=== PATIENT | female | born 1995 | race African-American/Black ===

== ENCOUNTER 2023-04-02 08:56 | Inpatient (IN) ==
[2023-04-02] MEDS ORDERED: BUPIVACAINE 0.25% PF 30 ML VIAL ONE (09:24)
[2023-04-02] MEDS ORDERED: fentaNYL citrate PF 100 MCG/2 ML VIAL ONE (09:24)
[2023-04-02] MEDS ORDERED: ePHEDrine sulfate 50 MG/ML AMP ONE (09:24)
[2023-04-02] MEDS ORDERED: SODIUM CHLORIDE 0.9% PF INJ 10 ML VIAL ONE (09:24)
[2023-04-02] MEDS ORDERED: LIDOCAINE 2%/EPINEPHRINE 1:200,000 20 ML PF ONE (09:25)
[2023-04-02] MEDS ORDERED: fentaNYL 2MCG/ML ROPIVACAINE 1.25MG/ML 100 ML BAG EPI ONE (09:25)
[2023-04-02] MEDS ORDERED: OXYTOCIN 30 UNITS/500ML NSS IV ONE (09:33)
[2023-04-02] MEDS ORDERED: LIDOCAINE 1% LOCAL 20 ML VIAL INFIL PRN (09:36)
[2023-04-02] MEDS ORDERED: OXYTOCIN 30 UNITS/500 ML BAG IV PRN ×3 (09:36→14:47)
--- NOTE | 2023-04-02 09:40 | Anesthesiology Consultation ---
Date of Service April 02, 2023 Assessment & Plan Chart Review Chart Review: Acceptable Risk for Surgery, Patient NOT seen in Pre Admission Testing and Acceptable Risk for Labor Epidural Consults Requested none ASA ASA2 Proposed Anesthesia Anesthesia Type: Labor Epidural and CSE History Height/Weight Height: 5 ft 5 in Weight: 93.416 kg Allergies Allergy/AdvReac Type Severity Reaction Status Date / Time No Known Allergies Allergy Verified 03/31/23 09:54 Medications Home Medications Medication Instructions Recorded Confirmed Last Taken prenat.vits,samuel,dyq-[id number]-owzdq 1 tab PO DAILY #60 tabs 12/30/22 04/02/23 04/01/23 Past Medical History Medical History No pertinent past medical history Exercise / Class Metabolic Activity II 4-5 Yardwork/Stairs/Walk up hill Past Family History Family History Father Hypertension Heart disease Past Surgical History Surgical History History of appendectomy Past Anesthesia History No Hx of Anesthesia Complications and No Family Hx of Anesthesia Complications History of PONV No Hx of PONV and No Hx of Motion Sickness Social History Smoking Status: Never smoker Do You Dip or Chew Tobacco: No Hx Alcohol Use: No Hx Substance Use: No Physical Exam Vital Signs Last Vital Signs Pulse 110 H 04/02/23 09:07 Resp 18 04/02/23 09:14 BP 121/66 04/02/23 09:07
--- NOTE | 2023-04-02 09:40 | History & Physical Report ---
Date of Service April 02, 2023 Assessment & Plan (1) Normal labor: Plan admit, iv, labs. anesth consult for epidural. fhts categ 1. anticipate soon. History of Present Illness Chief Complaint: labor Primary Care Provider: NO PCP 28yo at 39+wks ega presents with cc of labor. No rom. No vb. Feels rectal pressure. Cx per nurse ?complete. PNC unremarkable. PNL rh pos, ri, gbs neg OBH: g1 GYNH: nl paps no stds Allergies Allergy/AdvReac Type Severity Reaction Status Date / Time No Known Allergies Allergy Verified 03/31/23 09:54 Home Medications Medication Instructions Recorded Confirmed Type prenat.vits,samuel,[id number] 1 tab PO DAILY #60 tabs 12/30/22 04/02/23 Rx Patient History Medical History No pertinent past medical history Surgical History History of appendectomy Family History Father Hypertension Heart disease Social History (Updated 04/02/23 @ 09:14 by Maribel Benson, RN) Smoking Status: Never smoker Do You Dip or Chew Tobacco: No; Hx Alcohol Use: No Hx Substance Use: No Preferred Language: Slovenian Communication Ability: Effective Chief Media Officer Required: No Beliefs That Will Affect Care: None marital status: marital status details: Kevin (31) [phone] Current Living Situation: Spouse Current Living Situation Comment: lives with spouse, and his parents. current occupational status: unemployed current occupation: Homemaker Feels Safe at Home: Yes Diet: regular Assistive Devices: None Review of Systems as per Subjective / HPI Physical Exam Constitutional: WD/WN, vitals as above Gastrointestinal (Abdomen): soft gravid nt Musculoskeletal: no edema Neurologic: grossly normal Psychiatric: A+Ox3, euthymic affect Genitourinary: Manual OB Exam: + cervical dilation 9 cm, + cervical effacement 100%, + station -2 and + amniotic fluid (arom) clear Results & Data Vital Signs (Past 12 Hours) Vital Signs Pulse Resp BP 04/02/23 09:14 18 04/02/23 09:07 110 H 121/66 Coding Level of Care Code None Diagnoses Normal labor O80; Z37.9
[2023-04-02] MEDS: LACTATED RINGER'S 1,000 ML IV PRN ×2 (09:45→10:31)
[2023-04-02 10:02] LABS: Hematocrit (blood only) 35.2 % (37.0-47.0); Hemoglobin 11.8 g/dl (12.0-16.0); Mean Corpuscular Hemoglobin 30.8 pg (25.0-34.0); Mean Corpuscular Hgb Conc 33.5 g/dL (32.0-36.0); Mean Corpuscular Volume 91.9 fL (80.0-100.0); Mean Platelet Volume 10.9 fL (9.4-12.4); Platelet Count 194 K/uL (130-400); RDW Coefficient of Variation 14.5 % (11.5-14.5); RDW Standard Deviation 48.3 fL (36.4-46.3); Red Blood Count 3.83 M/uL (4.20-5.40); White Blood Count 8.64 K/ul (4.8-10.8)
[2023-04-02] MEDS ORDERED: NALOXONE HCL 1 MG in SODIUM CHLORIDE 0.9% 1000ML 1,000 ML IV PRN (10:16)
[2023-04-02] MEDS ORDERED: SODIUM CHLORIDE 0.9% PF INJ 10 ML VIAL EPI STA (10:16)
[2023-04-02] MEDS ORDERED: LIDOCAINE 2% MPF LOCAL 5 ML VIAL EPI PRN (10:16)
[2023-04-02] MEDS ORDERED: SODIUM CHLORIDE 0.9% PF INJ 10 ML VIAL EPI PRN (10:16)
[2023-04-02] MEDS ORDERED: LIDOCAINE 2%/EPINEPHRINE 1:200,000 20 ML PF EPI STA (10:16)
[2023-04-02] MEDS ORDERED: fentaNYL citrate PF 100 MCG/2 ML VIAL EPI STA (10:16)
[2023-04-02] MEDS ORDERED: ePHEDrine sulfate 50 MG/ML AMP IV PRN (10:16)
[2023-04-02] MEDS ORDERED: NALOXONE HCL 0.4 MG/1 ML VIAL/CARP IV PRN (10:16)
[2023-04-02] MEDS ORDERED: PROMETHAZINE HCL 25 MG in SODIUM CHLORIDE 0.9% 50 ML IV PRN (10:16)
[2023-04-02] MEDS ORDERED: ONDANSETRON INJ 2 MG/ML 2 ML VIAL IV PRN (10:16)
[2023-04-02] MEDS ORDERED: fentaNYL 2MCG/ML ROPIVACAINE 1.25MG/ML 100 ML BAG EPI PRN (10:16)
[2023-04-02] MEDS ORDERED: NALBUPHINE HCL INJ 10 MG/ML AMP IV PRN (10:16)
[2023-04-02] MEDS ORDERED: fentaNYL citrate PF 100 MCG/2 ML VIAL EPI PRN (10:16)
[2023-04-02] MEDS ORDERED: BUPIVACAINE 0.25% PF 30 ML VIAL EPI STA (10:16)
[2023-04-02] MEDS ORDERED: BUPIVACAINE 0.25% PF 30 ML VIAL EPI PRN (10:16)
[2023-04-02] MEDS ORDERED: ROPIVACAINE 0.5% PF 5 MG/ML 20 ML VIAL EPI PRN (10:16)
[2023-04-02] MEDS ORDERED: diphenhydrAMINE 50 MG/ML VIAL IV PRN (10:16)
--- NOTE | 2023-04-02 12:53 | Labor Progress Brief Note ---
Date of Service April 02, 2023 Subjective pt comfortable, s/p nap. bladder just drained and ready to push. Assessment & Plan (1) Normal labor: Plan ready to push, may benefit from pitocin due to irregular ctx. efw 7-8#. fhts categ 1. Admission and Anticipated Discharge Date Admission Date: April 02, 2023 Physical Exam Constitutional: WD/WN, vitals as above Genitourinary: Manual OB Exam: + cervical dilation 10 cm and + cervical effacement 100% OB Exam Monitor Tracing: + external FHT monitor used, + external uterine monitor used (q2-5), + category I and + normal FHT variability Results & Data Vital Signs (Past 12 Hours) Vital Signs Temp Pulse Resp BP Pulse Ox 04/02/23 09:14 18 04/02/23 12:50 105 H 100 04/02/23 12:48 103 H 116/72 04/02/23 12:45 94 04/02/23 12:45 97 H 04/02/23 12:45 102 H 90 04/02/23 12:42 97.7 F 111 H 20 119/76 04/02/23 12:40 106 H 100 04/02/23 12:37 109 H 111/68 04/02/23 12:35 108 H 100 04/02/23 12:33 100 H 20 111/60 04/02/23 12:30 96 H 100 04/02/23 12:27 96 H 105/58 L 04/02/23 12:25 108 H 100 04/02/23 12:22 94 H 100/57 L 04/02/23 12:20 93 H 100 04/02/23 12:17 94 H 104/55 L 04/02/23 12:15 104 H 98 04/02/23 12:14 103 H 89 L 04/02/23 12:12 95 H 103/57 L 04/02/23 12:10 99 H 100 04/02/23 12:07 98 H 102/57 L 04/02/23 12:05 98 H 100 04/02/23 12:03 94 H 100/59 L 04/02/23 12:00 100 H 100 04/02/23 11:58 100 H 100/53 L 04/02/23 11:55 95 H 100 04/02/23 11:54 95 H 103/55 L 04/02/23 11:50 101 H 100 04/02/23 11:48 104 H 103/56 L 04/02/23 11:45 104 H 100 04/02/23 11:42 100 H 101/59 L 04/02/23 11:40 103 H 100 04/02/23 11:37 100 H 104/59 L 04/02/23 11:35 106 H 100 04/02/23 11:34 105 H 101/58 L 04/02/23 11:30 107 H 99 04/02/23 11:28 101 H 18 101/53 L 04/02/23 11:25 105 H 100 04/02/23 11:23 101 H 18 102/56 L 04/02/23 11:20 111 H 100 04/02/23 11:17 102 H 18 107/55 L 04/02/23 11:15 103 H 100 04/02/23 11:14 104 H 105/56 L 04/02/23 11:10 112 H 98 04/02/23 11:08 108 H 104/55 L 04/02/23 11:05 107 H 100 04/02/23 11:02 107 H 103/55 L 04/02/23 11:00 106 H 100 04/02/23 10:58 118 H 102/59 L 04/02/23 10:55 104 H 99 04/02/23 10:54 123 H 117/65 04/02/23 10:50 133 H 100 04/02/23 10:48 20 04/02/23 10:48 98.1 F 111 H 20 113/57 L 04/02/23 10:45 120 H 100 04/02/23 10:42 118 H 04/02/23 10:42 132 H 118/56 L 93 04/02/23 10:40 118 H 99 04/02/23 10:39 134 H 109/51 L 04/02/23 10:35 121 H 98 04/02/23 10:33 121 H 20 102/50 L 04/02/23 10:30 112 H 97/55 L 100 04/02/23 10:28 125 H 20 97/49 L 04/02/23 10:25 117 H 100 04/02/23 10:24 131 H 105/49 L 04/02/23 10:20 112 H 100 04/02/23 10:18 126 H 18 80/41 L 04/02/23 10:17 117 H 18 95/44 L 04/02/23 10:15 114 H 18 100 04/02/23 10:14 133 H 18 107/54 L 04/02/23 10:12 121 H 18 110/61 04/02/23 10:10 100 04/02/23 10:10 124 H 04/02/23 10:10 121 H 18 123/72 04/02/23 10:05 124 H 89 L 04/02/23 10:00 117 H 100 04/02/23 09:55 113 H 100 04/02/23 09:50 115 H 100 04/02/23 09:45 121 H 100 04/02/23 09:40 132 H 97 04/02/23 09:07 97.9 F 110 H 121/66 Coding Level of Care Code None Diagnoses Normal labor O80; Z37.9
--- NOTE | 2023-04-02 13:57 | Delivery Summary ---
Vaginal Delivery Summary Date of Service April 02, 2023 Vaginal Delivery Summary and 2nd Degree LAC The patient dilated to complete and pushed to deliver a viable male infant Apgars 8 and 9 via over 2nd degree perineal laceration. Mild shoulder dystocia encountered relieved by Kailey maneuvers and effective maternal expulsive efforts. Mouth and nose bulb suctioned at perineum. Shoulders and body delivered with ease. Infant was vigorous and crying at . Cord clamped at 30 seconds of life and to maternal abdomen where the cord was then doubly clamped and cut. Placenta delivered spontaneously and intact, three- vessel cord. Hemostasis achieved with dilute pitocin and uterine massage and drainage of the bladder for approximately 50 cc under sterile conditions. Cervix and sulci intact. Laceration repaired with 3-0 vicryl in usual fashion. EBL 300 cc. Mother and baby stable in recovery. [facility] [place] Vaginal Delivery Charge Delivery Type Details: and 2nd Degree LAC
[2023-04-02] MEDS ORDERED: HYDROCORTISONE ACETATE 25 MG SUPP PR PRN (14:47)
[2023-04-02] MEDS ORDERED: DIPHTHERIA/TETANUS/PERTUSSIS Vaccine (Tdap, Age 7+yrs) 0.5mL SYR/VL IM ONE (14:47)
[2023-04-02] MEDS ORDERED: bisacodyL 10 MG SUPP PR PRN (14:47)
[2023-04-02] MEDS ORDERED: BENZOCAINE 20% AER SPR 82.5 GM CAN EXT PRN (14:47)
[2023-04-02] MEDS ORDERED: oxyCODONE/ACETAMINOPHEN 5mg/325mg TAB PO PRN (14:47)
--- NOTE | 2023-04-02 15:47 | Anesthesia Procedure Note ---
Date of Service April 02, 2023 Anesthesia Post Epidural Note Vital Signs Vital Signs: Temp Pulse Resp BP Pulse Ox 36.5 C 96 H 18 116/64 100 04/02/23 12:42 04/02/23 15:42 04/02/23 14:28 04/02/23 15:42 04/02/23 13:40 Notes Mental Status: alert / awake / arousable Nausea / Vomiting: adequately controlled Pain: adequately controlled Airway Patency, RR, SpO2: stable & adequate BP & HR: stable & adequate Hydration State: stable & adequate Neuraxial Anesthesia: was administered and sensory block is resolving Anesthetic Complications: no major complications apparent Epidural: Removed without complications and With tip intact
[2023-04-02] MEDS: IBUPROFEN 600 MG TAB PO PRN ×3 (16:17→23:58)
[2023-04-02] MEDS: ACETAMINOPHEN 325 MG TAB PO PRN (19:52)
[2023-04-02] MEDS: DOCUSATE SODIUM 100 MG CAP PO SCH (20:57)
[2023-04-03] MEDS: ACETAMINOPHEN 325 MG TAB PO PRN (03:19)
[2023-04-03] MEDS: IBUPROFEN 600 MG TAB PO PRN ×4 (04:03→18:20)
[2023-04-03] MEDS: DOCUSATE SODIUM 100 MG CAP PO SCH ×2 (08:35→21:26)
[2023-04-03] MEDS: PRENATAL VITAMIN 1 TAB PO SCH (08:35)
--- NOTE | 2023-04-03 08:37 | Obstetrical Progress Note ---
Date of Service April 03, 2023 Assessment & Plan (1) exam: Plan stable, routine care. breast/rhpos, ri. Day #:: 1 Subjective Ambulation: ambulating normally Voiding: no voiding problems Diet Tolerance:: regular diet Lochia:: Small Feeding Type:: breast feeding denies concerns Constitutional: + as per Subjective / HPI Physical Exam Constitutional WD/WN, vitals as above Respiratory normal respiratory effort, lungs clear to auscultation Cardiovascular Rate/Rhythm: regular rate and regular rhythm Gastrointestinal (Abdomen) Inspection/Auscultation: abdomen normal to inspection Percussion/Palpation: abdomen soft Fundus firm 1cm down Musculoskeletal nt calves no edema Neurologic grossly normal Psychiatric A+Ox3, euthymic affect Results & Data Vital Signs (Past 12 Hours) Vital Signs Temp Pulse Resp BP Pulse Ox O2 Del Method 04/03/23 03:18 98.1 F 86 18 112/73 99 Room Air 04/02/23 23:08 98.1 F 90 20 110/68 98 Room Air
[2023-04-03] MEDS: OXYTOCIN 20 UNITS in LACTATED RINGER'S 1,000 ML IV SCH ×2 (19:36→19:37)
[2023-04-04] MEDS: IBUPROFEN 600 MG TAB PO PRN ×2 (02:04→09:26)
--- NOTE | 2023-04-04 06:29 | Obstetrical Progress Note ---
Date of Service <Sulaiman Way DO - Last Filed: 04/04/23 06:52> April 04, 2023 Assessment & Plan <Sulaiman Way DO - Last Filed: 04/04/23 06:52> (1) exam: - Feels well today. Eating well, voiding well, ambulating well. - Pain well controlled with ibuprofen 600mg Q4H PRN. - Routine care -- OOB, ambulation, diet progression as tolerated - After discharge will have 6 week follow-up with Dr. Mcrae. - Will D/C today. (2) Normal labor: - As above (3) Bilateral calf pain: - Patient with bilateral calf pain starting this AM. - No lower extremity edema or swelling. No deep calf pain. Song's negative bilaterally. - No asymmetric swelling. We will hold off on imaging at this time and monitor closely throughout the day before D/C. Day #:: 2 <Roshni Mcrae MD, FACOG - Last Filed: 04/04/23 06:55> (1) exam: (2) Normal labor: (3) Bilateral calf pain: Subjective <Sulaiman Way DO - Last Filed: 04/04/23 06:52> Ambulation: ambulating normally Voiding: no voiding problems Passing Gas:: Yes Diet Tolerance:: regular diet Lochia:: Small Feeding Type:: breast feeding Current Pain Level(1-10): 3 Review of Systems Denies fever, chills, sweats Denies shortness of breath, difficulty breathing, chest pain, palpitations, chest pressure. Denies breast pain. Denies dysuria. Denies headache or changes in vision. + Bilateral calf pain Physical Exam <Sulaiman Way - Last Filed: 04/04/23 06:52> General: Alert, oriented. No acute distress. Cardiac: Regular rate and rhythm, no murmurs/rubs/gallops. Respiratory: Clear to auscultation bilaterally a/p, no wheezes/rales/rhonchi. No increased work of breathing. Symmetrical chest rise. No respiratory distress. Abdomen: Soft, nontender, nondistended. Bowel sounds present. Uterus: Uterine fundus firm, palpable 2 cm below umbilicus. Lower Extremities: No lower extremity edema or swelling. No deep calf pain. Song's negative bilaterally. Results & Data <Sulaiman Way DO - Last Filed: 04/04/23 06:52> Vital Signs (Past 12 Hours) Vital Signs Temp Pulse Resp BP Pulse Ox O2 Del Method 04/04/23 00:15 36.8 C 76 18 110/68 100 Room Air 04/03/23 20:50 36.8 C 92 H 18 106/79 98 Room Air Laboratory Results 04/02/23 09:44 <Roshni Mcrae MD, FACOG - Last Filed: 04/04/23 06:55> Co-Signing Physician Notes Resident Physician Supervision Note: I was present with Dr. Way during the history and exam. I discussed the case with the resident and agree with the findings and plan as documented in the note. Any exceptions or clarifications are listed here: doing well. eating, voiding, ambulating. . noting some muscular calf pain bilaterally, denies cord, redness. Per nurse she noted muscle pain in general through the night. abd soft ff 2down nt, ext nt calves, neg homans, LE equal in size bilaterally. no cord, no warmth, no point tenderness. PPD #2 s/p , stable for dc home. pt nursing right now, will get up and move around and see if she feels calf pain persists/worsens/more than muscle pain. will then need to notify us. pt nursing team aware to let us know how pt is doing with this prior to dc. instructions reviewed, f/u 6 wk pp. rh pos, ri. Documented By: Roshni Mcrae MD, FACOG Resident Activity Tracking <Sulaiman Way DO - Last Filed: 04/04/23 06:52> Resident Involvement: Resident Care Provided Care Provided: OB Delivery
[2023-04-04] MEDS: DOCUSATE SODIUM 100 MG CAP PO SCH (09:26)
[2023-04-04] MEDS: PRENATAL VITAMIN 1 TAB PO SCH (09:26)
== END 2023-04-04 15:52 | disposition home or self-care (01) | DRG 807 ==
LOC: OPB 08:56 → 4S1 08:58 → 4E2 16:45

== ENCOUNTER 2025-01-02 07:45 | Inpatient (IN) ==
--- NOTE | 2025-01-02 08:23 | History & Physical Report ---
Date of Service January 02, 2025 Assessment & Plan (1) GBS carrier: (2) Encounter for supervision of normal in multigravida, antepartum: Plan - Vital Signs Stable - Category One Tracing -Start Pitocin. Monitor progression of labor -Lab ordered -Desires Epidural -GBS positive- will get Penicillin G Admission and Anticipated Discharge Date Admission Date: January 02, 2025 History of Present Illness Chief Complaint: induction of labor Primary Care Provider: Trevor Lorenz DO Patient is a 29yo female currently at 40WGA with an FE 01/02/25 as determined by [LMP]who is here for induction. Not feeling contractions; movement present; No fluid loss; No bloody show External FHT and external uterine monitors used; category I tracing; normal FHT variability Had regular appointments with OB. Allergies Allergy/AdvReac Type Severity Reaction Status Date / Time No Known Allergies Allergy Verified 01/01/25 11:15 Home Medications Medication Instructions Recorded Confirmed Type ferrous sulfate 300 mg (60 mg 300 mg PO DAILY 12/16/24 01/02/25 History iron) tablet vits no.130-ferrous fum 1 tab PO DAILY 12/16/24 01/02/25 History 27 mg iron-folic acid 800 mcg tablet ( Vitamin) Patient History Medical History COVID exam Normal labor No pertinent past medical history Surgical History History of appendectomy Family History Father Hypertension Heart disease Social History (Updated 01/02/25 @ 07:57 by Khushi Ceron RN) Smoking Status: Never smoker Do You Dip or Chew Tobacco: No; Hx Alcohol Use: No Hx Substance Use: No Preferred Language: Salvadorean Communication Ability: Effective Visual Impairment: No Limitations Hearing Ability: Normal Launching Pad Mechanic Required: No Beliefs That Will Affect Care: None marital status: marital status details: Kevin (33) [phone] Current Living Situation: Spouse Current Living Situation Comment: and son current occupational status: unemployed current occupation: Homemaker Other Information That Helps Us Care for You: No Feels Safe at Home: Yes Safety Concerns: Feels Safe At This Time Diet: regular caffeine: Yes (1 cup tea/day) Dental Care, Regularly: Yes Gender Identity: Female Assistive Devices: None Review of Systems As per HPI Physical Exam Physical Exam: General: Alert and oriented. No acute distress CV: Regular rate and rhythm. No murmurs. Respiratory: CTA bilaterally. No rhonchi, wheezes, or crackles. No increased work of breathing. Abdomen: Gravid; Soft, nontender upon palpation Pelvic: Dilated 2 cm; Effacement 50%; Station -[address] Andrew at 9:00 AM Lower extremities: No LE edema. No deep calf pain. Song's negative bilaterally. Results & Data Vital Signs (Past 12 Hours) Vital Signs Temp Pulse Resp BP 01/02/25 07:54 37.1 C 20 01/02/25 07:52 93 H 134/83 Supervising Physician Co-Signing Physician Notes Resident Physician Supervision Note: I interviewed and examined the patient. Discussed with [Name of resident] and agree with findings and plan as documented in the note. Any exceptions or clarifications are listed here: [None] Documented By: Zandra Carson MD, FACOG
[2025-01-02 08:49] LABS: Hematocrit (blood only) 34.8 % (37.0-47.0); Hemoglobin 11.4 g/dl (12.0-16.0); Mean Corpuscular Hemoglobin 30.1 pg (25.0-34.0); Mean Corpuscular Hgb Conc 32.8 g/dL (32.0-36.0); Mean Corpuscular Volume 91.8 fL (80.0-100.0); Mean Platelet Volume 11.6 fL (9.4-12.4); Platelet Count 188 K/uL (130-400); RDW Coefficient of Variation 16.7 % (11.5-14.5); Red Blood Count 3.79 M/uL (4.20-5.40); White Blood Count 5.55 K/ul (4.8-10.8)
[2025-01-02] MEDS: LACTATED RINGER'S 1,000 ML IV PRN (09:14)
[2025-01-02] MEDS: OXYTOCIN 30 UNITS/NSS 30 UNITS/500 ML BAG IV PRN ×2 (09:19→18:06)
[2025-01-02] MEDS: PENICILLIN GK 6 MU in DEXTROSE 5% 250 ML IV STA (09:24)
[2025-01-02] MEDS: PENICILLIN GK 3 MU in DEXTROSE 5% 100 ML IV PRN (13:01)
[2025-01-02] MEDS: LIDOCAINE 1% LOCAL 20 ML VIAL INFIL PRN (14:40)
[2025-01-02] MEDS: fentaNYL citrate PF 100 MCG/2 ML VIAL ONE (14:50)
[2025-01-02] MEDS: SODIUM CHLORIDE 0.9% PF INJ 10 ML VIAL ONE (14:50)
[2025-01-02] MEDS: BUPIVACAINE 0.25% PF 30 ML VIAL ONE (14:51)
[2025-01-02] MEDS: fentANYL 2 MCG/ML BUPIVacaine 0.125%-NSS 100ML BAG ONE (15:14)
[2025-01-02] MEDS: LIDOCAINE 2%/EPINEPHRINE 1:200,000 20 ML PF ONE (15:16)
[2025-01-02] MEDS ORDERED: BUPIVACAINE 0.25% PF 30 ML VIAL EPI PRN (15:21)
[2025-01-02] MEDS ORDERED: fentaNYL citrate PF 100 MCG/2 ML VIAL EPI PRN (15:21)
[2025-01-02] MEDS ORDERED: diphenhydrAMINE 50 MG/ML VIAL IV PRN (15:21)
[2025-01-02] MEDS ORDERED: NALOXONE HCL 0.4 MG/1 ML VIAL/CARP IV PRN (15:21)
[2025-01-02] MEDS ORDERED: ePHEDrine sulfate 50 MG/ML AMP IV PRN (15:21)
[2025-01-02] MEDS ORDERED: NALBUPHINE HCL INJ 10 MG/ML AMP IV PRN (15:21)
[2025-01-02] MEDS ORDERED: ROPIVACAINE 0.5% PF 5 MG/ML 20 ML VIAL EPI PRN (15:21)
[2025-01-02] MEDS ORDERED: SODIUM CHLORIDE 0.9% PF INJ 10 ML VIAL EPI PRN (15:21)
[2025-01-02] MEDS ORDERED: LIDOCAINE 2% MPF LOCAL 5 ML VIAL EPI PRN (15:21)
[2025-01-02] MEDS ORDERED: fentANYL 2 MCG/ML BUPIVacaine 0.125%-NSS 100ML BAG EPI PRN (15:21)
[2025-01-02] MEDS ORDERED: NALOXONE HCL 1 MG in SODIUM CHLORIDE 0.9% 1,000 ML IV PRN (15:21)
--- NOTE | 2025-01-02 15:21 | Anesthesiology Consultation ---
Date of Service January 02, 2025 Assessment & Plan Chart Review Chart Review: Acceptable Risk for Labor Epidural Consults Requested none History Height/Weight Height: 5 ft 5 in Weight: 92.442 kg Allergies Allergy/AdvReac Type Severity Reaction Status Date / Time No Known Allergies Allergy Verified 01/01/25 11:15 Medications Home Medications Medication Instructions Recorded Confirmed Last Taken ferrous sulfate 300 mg (60 mg 300 mg PO DAILY 12/16/24 01/02/25 12/31/24 20:00 iron) tablet vits no.130-ferrous fum 1 tab PO DAILY 12/16/24 01/02/25 01/01/25 20:00 27 mg iron-folic acid 800 mcg tablet ( Vitamin) Active Medications Generic Name Dose Route Start Last Admin Trade Name Luz Marina PRN Reason Stop Dose Admin Lactated Ringer's 1,000 mls @ 125 mls/hr 01/02/25 07:59 01/02/25 14:45 Lr IV 01/03/25 07:58 Infused .Q8H PRN Infusion L&D Protocol Protocol Oxytocin 30 units in 500 mls @ 17 mls/hr 01/02/25 07:59 01/02/25 14:15 Pitocin 30 Units/Nss IV 01/04/25 07:58 1.02 units/hr .Q24H PRN 17 mls/hr Labor Induction/Augmentation Titration Protocol 1.02 UNITS/HR Penicillin G Potassium 3 mu/ 106 mls @ 100 mls/hr 01/02/25 10:59 01/02/25 13:01 Dextrose IV 01/12/25 10:58 100 mls/hr Q4H PRN Administration GBS(+) Until Delivery Past Medical History Medical History COVID exam Normal labor No pertinent past medical history Past Family History Family History Father Hypertension Heart disease Past Surgical History Surgical History History of appendectomy Social History Smoking Status: Never smoker Do You Dip or Chew Tobacco: No Hx Alcohol Use: No Hx Substance Use: No substance use type: does not use Physical Exam Vital Signs Last Vital Signs Temp 37 C 01/02/25 11:47 Pulse 90 01/02/25 15:18 Resp 20 01/02/25 12:54 BP 107/53 L 01/02/25 15:10 Pulse Ox 100 01/02/25 15:18 Testing Laboratory Results 01/02/25 08:19
[2025-01-02] MEDS: cefOXitin 2,000 MG in DEXTROSE 5 % MINI-B 50 ML IV STA (17:33)
[2025-01-02] MEDS ORDERED: bisacodyL 10 MG SUPP PR PRN (17:51)
[2025-01-02] MEDS ORDERED: BENZOCAINE 20% SPRY 85 APPLN/85 GM CAN EXT PRN (17:51)
[2025-01-02] MEDS ORDERED: HYDROCORTISONE ACETATE 25 MG SUPP PR PRN (17:51)
[2025-01-02] MEDS ORDERED: OXYTOCIN 30 UNITS/NSS 30 UNITS/500 ML BAG IV PRN (17:51)
--- NOTE | 2025-01-02 19:19 | Delivery Summary ---
Vaginal Delivery Summary Date of Service January 02, 2025 Vaginal Delivery Summary and 1st Degree LAC Patient is a 29-year-old 2 para 1-0-0-1 female who presents at 40 weeks for induction of labor because of prior LGA fetus. Pitocin was begun per labor and delivery protocol. She received effective epidural analgesia. Membranes ruptured for clear fluid. 2 hours later she felt the urge to push. She pushed effectively over intact perineum for delivery of a viable male infant. After the head was delivered the anterior shoulder was delivered with maternal effort and the rest the infant delivered easily. He was placed on the mother's abdomen for further attention and drying. The cord was clamped and cut after 1 minute. He was vigorous crying and moving all 4 limbs. After cord blood was obtained, the placenta was attempted to be delivered by gently pulling on the umbilical cord. The cord avulsed and manual removal of the placenta was done. After removal of the placenta, the uterine cavity was explored and found be free of any retained membranes or tissue. 2 g of Mefoxin IV were given prophylactically. bleeding was controlled with dilute Pitocin and fundal massage. She also received 2 doses of penicillin G for GBS prophylaxis. A first-degree perineal laceration was repaired with 3-0 chromic in usual fashion. QBL was 650 cc. Mother and were doing well after delivery. [facility] [place] Vaginal Delivery Charge Delivery Type Details: and 1st Degree LAC
--- NOTE | 2025-01-02 19:35 | Anesthesia Procedure Note ---
Date of Service January 02, 2025 Anesthesia Post Epidural Note Vital Signs Vital Signs: Temp Pulse Resp BP Pulse Ox 36.7 C 69 20 120/85 100 01/02/25 17:46 01/02/25 19:13 01/02/25 18:40 01/02/25 19:13 01/02/25 17:33 Pain Intensity Abdomen: Pain Intensity: 0 Notes Mental Status: alert / awake / arousable Nausea / Vomiting: adequately controlled Pain: adequately controlled Airway Patency, RR, SpO2: stable & adequate BP & HR: stable & adequate Hydration State: stable & adequate Neuraxial Anesthesia: was administered and sensory block is resolving Anesthetic Complications: no major complications apparent and Pt Satisfied with anesthetic care Epidural: Removed without complications and With tip intact
[2025-01-02] MEDS: IBUPROFEN 600 MG TAB PO PRN (21:38)
[2025-01-02] MEDS: DOCUSATE SODIUM 100 MG CAP PO SCH (21:39)
[2025-01-03] MEDS: ACETAMINOPHEN 325 MG TAB PO PRN (03:42)
[2025-01-03] MEDS: oxyCODONE/ACETAMINOPHEN 5mg/325mg TAB PO PRN (04:51)
[2025-01-03 07:04] LABS: Hematocrit (blood only) 31.9 % (37.0-47.0); Hemoglobin 10.5 g/dl (12.0-16.0); Mean Corpuscular Hemoglobin 29.7 pg (25.0-34.0); Mean Corpuscular Hgb Conc 32.9 g/dL (32.0-36.0); Mean Corpuscular Volume 90.1 fL (80.0-100.0); Platelet Count 183 K/uL (130-400); RDW Coefficient of Variation 16.7 % (11.5-14.5); RDW Standard Deviation 54.9 fL (36.4-46.3); Red Blood Count 3.54 M/uL (4.20-5.40); White Blood Count 8.84 K/ul (4.8-10.8)
--- NOTE | 2025-01-03 07:33 | Obstetrical Progress Note ---
Date of Service January 03, 2025 Assessment & Plan (1) Normal spontaneous vaginal delivery: Plan Baby in nursery room. Is monitored for hypoglycemia Mom doing well .Will observe her today. Plan discharge to home tomorrow. Admission and Anticipated Discharge Date Admission Date: January 02, 2025 Supervising Physician Co-Signing Physician Notes Resident Physician Supervision Note: I interviewed and examined the patient. Discussed with Dr. Pappas and agree with findings and plan as documented in the note. Any exceptions or clarifications are listed here: [None] Documented By: Zandra Carson MD, FACOG Subjective #1PPD following for 29years at 40week POG. She reports she is having a lot of cramping pain. Pain: Mild, intermittent Lochia: Moderate Diet: Regular Ob diet Gas: Not aware of passing, but no abdominal distension Peeing: Normal, no bladder distension Ambulation: Normally Review of Systems Review of Systems: As per HPI Physical Exam Physical Exam: General: Alert and oriented. No acute distress. CVS: S1 S2+ No murmurs, regular rhythm. Respiratory: CTA bilaterally. No rhonchi, wheezes, or crackles. No increased work of breathing. Abdomen: Bowel sound +. Soft, nontender Uterus: Fundus firm and palpable few cm below the umbilicus. Lower extremities: No LE edema. No deep calf pain. Results & Data Vital Signs (Past 12 Hours) Vital Signs Temp Pulse Pulse Resp BP BP Pulse Ox 01/03/25 04:00 36.6 C 85 16 110/74 99 01/02/25 23:02 36.8 C 98 H 16 117/83 99 01/02/25 20:54 36.6 C 80 16 120/81 99 01/02/25 19:43 18 01/02/25 19:43 18 01/02/25 19:43 77 01/02/25 19:43 123/81 O2 Del Method 01/03/25 04:00 Room Air 01/02/25 23:02 Room Air 01/02/25 20:54 Room Air 01/02/25 19:43 01/02/25 19:43 01/02/25 19:43 01/02/25 19:43
[2025-01-03] MEDS: PRENATAL VITAMIN 1 TAB PO SCH (09:35)
[2025-01-03] MEDS: ePHEDrine sulfate 50 MG/ML AMP ONE (19:23)
[2025-01-03] MEDS: fentaNYL citrate PF 100 MCG/2 ML VIAL EPI STA (19:23)
[2025-01-03] MEDS: SODIUM CHLORIDE 0.9% PF INJ 10 ML VIAL EPI STA (19:23)
[2025-01-03] MEDS: BUPIVACAINE 0.25% PF 30 ML VIAL EPI STA (19:23)
[2025-01-03] MEDS: LIDOCAINE 2%/EPINEPHRINE 1:200,000 20 ML PF EPI STA (19:23)
[2025-01-03] MEDS: DIPHTHER/TETAN/PERTUS Vaccine (Tdap, Adol/Adult) 0.5mL IM ONE (19:24)
[2025-01-03] MEDS: bisacodyL 5 MG TABEC PO SCH (19:33)
[2025-01-03 23:22] VITALS: O2SAT 99
[2025-01-04 06:28] LABS: Hemoglobin 11.1 g/dl (12.0-16.0)
--- NOTE | 2025-01-04 06:53 | Obstetrical Progress Note ---
Date of Service January 04, 2025 Assessment & Plan (1) Normal spontaneous vaginal delivery: Plan Both mom and baby doing well today. Plan discharge home today. Follow up after 6 weeks for visit. Admission and Anticipated Discharge Date Admission Date: January 02, 2025 Supervising Physician Co-Signing Physician Notes Resident Physician Supervision Note: I interviewed and examined the patient. Discussed with Dr. Pappas and agree with findings and plan as documented in the note. Any exceptions or clarifications are listed here: [ ] Documented By: Xin Escudero MD, FACOG Subjective #2PPD following for 29years at 40week POG. She reports her cramping is better than yesterday. Pain: Mild, intermittent Lochia: Moderate Diet: Regular Ob diet Gas: Not aware of passing, but no abdominal distension Peeing: Normal, no bladder distension Ambulation: Normally Review of Systems Review of Systems: As per HPI Physical Exam Physical Exam: General: Alert and oriented. No acute distress. CVS: S1 S2+ No murmurs, regular rhythm. Respiratory: CTA bilaterally. No rhonchi, wheezes, or crackles. No increased work of breathing. Abdomen: Bowel sound +. Soft, nontender Uterus: Fundus firm and palpable few cm below the umbilicus. Lower extremities: No LE edema. No deep calf pain. Results & Data Vital Signs (Past 12 Hours) Vital Signs Temp Pulse Resp BP Pulse Ox O2 Del Method 01/03/25 23:20 36.8 C 77 16 121/74 99 Room Air 01/03/25 19:01 37.1 C 72 18 118/65 100 Room Air
[2025-01-04 09:58] VITALS: BP 112/75; PULSE 88; RESP 18; TEMP 97.5
== END 2025-01-04 14:09 | disposition home or self-care (01) | DRG 807 ==
LOC: 4S1 07:45 → 4E2 20:39